=== PATIENT | female | born 1965 | race Caucasian/White ===

== ENCOUNTER 2018-12-17 07:59 | Day surgery (SDC) | payer MEDICAID ==
[~2018-12-17] VITALS: Ht 157.5 cm; Wt 56.8 kg
[2018-12-17 08:10] VITALS: BP 118/62
[2018-12-17] MEDS ORDERED: MIDAZolam 5mg/5ml vial ONE (08:12)
[2018-12-17] MEDS ORDERED: fentaNYL/PF 50MCG/1 ML 2ML syringe ONE (08:12)
[2018-12-17] MEDS ORDERED: OXYC-658 PO (08:49)
[2018-12-17] MEDS ORDERED: BISA-155 PO (08:50)
[2018-12-17] MEDS ORDERED: OXYC30TA85 PO (08:50)
[2018-12-17] MEDS ORDERED: NITR100C PO (08:51)
[2018-12-17] MEDS ORDERED: DOCU100C41 PO (08:51)
[2018-12-17] MEDS ORDERED: DIAZ5TAB4 PO (08:52)
[2018-12-17] MEDS ORDERED: PANT-47 PO (08:52)
[2018-12-17 10:55] VITALS: BP 104/72
[2018-12-17 11:10] VITALS: BP 118/68
[2018-12-17 11:20] VITALS: BP 111/62
[2018-12-17 11:30] VITALS: BP 112/71
== END 2018-12-17 11:40 | disposition home or self-care (01) ==
LOC: GI LAB 07:59
PROVIDERS: ATTEND Internal Medicine Gastroenterology
DX: K62.89 Other specified diseases of anus and rectum (principal)
CPT/HCPCS: 45380; 99152; 99153; J2250; J3010; J7030; A4620

== ENCOUNTER 2024-12-16 02:27 | Emergency (ER) | payer MEDICAID ==
[~2024-12-16] VITALS: Ht 160 cm; Wt 43.2 kg
[~2024-12-16 02:27] MED LIST: BISA-155 PO; DIAZ5TAB4 PO; DOCU100C41 PO; NITR100C PO; OXYC-658 PO; OXYC30TA85 PO; PANT-47 PO
[2024-12-16 03:04] LABS: BASOPHILS % (AUTO) 0.6 % (0-1); EOSINOPHILS # (AUTO) 0.2 X10'3 (0-0.9); EOSINOPHILS % (AUTO) 3.1 % (0-6); HEMATOCRIT 35.3 % (35.0-45.0); HEMOGLOBIN 11.6 g/dl (12.0-16.0); LYMPHOCYTES # (AUTO) 1.6 X10'3 (1.1-4.8); LYMPHOCYTES % (AUTO) 31.9 % (21-51); MEAN CORPUSCULAR HEMOGLOBIN 28.2 PG (27.0-31.0); MEAN CORPUSCULAR HGB CONC 32.8 g/dL (33.0-36.5); MEAN CORPUSCULAR VOLUME 86.2 FL (78-98); MEAN PLATELET VOLUME 9.6 FL (7.4-10.4); MONOCYTES # (AUTO) 0.6 X10'3 (0-0.9); MONOCYTES % (AUTO) 12.1 % (2-12); NEUTROPHILS # (AUTO) 2.6 X10'3 (1.8-7.7); NEUTROPHILS % (AUTO) 52.3 % (42-75); PLATELET COUNT 156 X10'3 (140-440); RED CELL DISTRIBUTION WIDTH 16.9 % (11.5-14.5); WHITE BLOOD COUNT 4.9 X10'3 (4.5-11.0)
[2024-12-16 03:16] LABS: ALANINE AMINOTRANSFERASE 20 U/L (12-78); ALBUMIN 3.7 G/DL (3.4-5.0); ALBUMIN/GLOBULIN RATIO 0.8 (1.1-1.5); ALKALINE PHOSPHATASE 91 IU/L (46-116); ANION GAP 6 (8-16); ASPARTATE AMINO TRANSFERASE 15 U/L (10-37); BILIRUBIN,TOTAL 0.3 MG/DL (0.1-1.0); BLOOD UREA NITROGEN 17 MG/DL (7-18); BUN/CREATININE RATIO 45.9 (10.0-20.0); CALCIUM 9.2 MG/DL (8.5-10.1); CHLORIDE 104 MMOL/L (99-107); CREATININE 0.37 MG/DL (0.40-0.90); GLUCOSE 140 MG/DL (70-104); POTASSIUM 3.9 MMOL/L (3.5-5.1); SODIUM 139 MMOL/L (135-145); TOTAL PROTEIN 8.4 G/DL (6.4-8.2); eCRCL 110 ML/MIN; eGFR > 90 ML/MIN
[2024-12-16 03:24] LABS: PRO BRAIN NATRIURETIC PEPTIDE 35 PG/ML (0-125)
[2024-12-16] MEDS: oxyCODONE/APAP 5-325mg tablet PO ONE (05:50)
[2024-12-16 05:51] VITALS: BP 100/80; PULSE 82; RESP 16; TEMP 98; O2SAT 100
== END 2024-12-16 06:02 ==
LOC: ER 02:29
DX: R07.9 Chest pain, unspecified (principal); Z88.1 Allergy status to other antibiotic agents; Z88.8 Allergy status to other drugs, medicaments and biological substances
CPT/HCPCS: 36415; 71045; 80053; 83880; 84484; 85025; 93005; 99285